=== PATIENT | female | born 1990 | race Caucasian/White ===

== ENCOUNTER 2022-12-30 12:13 | Emergency (ER) | payer MEDICAID, SELFPAY ==
[2022-12-30 12:18] VITALS: BP 137/83; PULSE 73; RESP 18; TEMP 36.6; O2SAT 98; BMI 43.3
--- NOTE | 2022-12-30 12:28 | CRLHL7_ITS ---
For Patients: As a result of the Century Cures Act, medical imaging exams and procedure reports are released immediately into your electronic medical record. You may view this report before your referring provider. If you have questions, please contact your health care provider. HISTORY: Right lower quadrant abdominal pain. TECHNIQUE: Intravenous contrast enhanced CT of the abdomen and pelvis. 139 mL Isovue-370 intravenous contrast administered. COMPARISON: 09/26/2016. FINDINGS: There is no focal liver lesion. No blurry ductal dilatation. Gallbladder does not appear overly distended. Mild splenomegaly with the spleen measuring 13.3 cm. Adrenal glands are normal. No focal pancreatic abnormality. Symmetric nephrograms. On the left, there is area of renal cortical parenchymal volume loss superiorly which is unchanged and compatible with remote insult. There is no hydronephrosis. Urinary bladder does not appear excessively distended. Small follicles within the ovaries. Trace free fluid within the cul de sac. - No small bowel obstruction. No appendicitis. No diverticulitis or colitis. No fluid collection or free air. - No abdominal aortic aneurysm. - Minor atelectasis within the right lower lobe. No consolidation or pleural effusion. - Degenerative changes of the spine. No acute fractures. IMPRESSION: 1. No appendicitis. 2. Small follicles within the ovaries. Trace fluid within the cul-de-sac. 3. Mild splenomegaly. Dictated by Torin Porras MD @ 12/30/2022 2:31:09 PM Please note that all CT scans at this facility use dose modulation, iterative reconstruction, and/or weight-based dosing when appropriate to reduce radiation dose to as low as reasonably achievable. Dictated by: Torin Porras MD @ 12/30/2022 14:31:29 (Electronically Signed)
--- NOTE | 2022-12-30 12:29 | ED_ITS ---
HPI - General Adult General Chief complaint: Abdominal Pain Stated complaint: Abdominal pain and vomiting Time Seen by Provider: 12/30/22 12:18 History of Present Illness HPI narrative: This 32-year-old female comes in reporting right lower quadrant abdominal pain that began last night. She states that it seemed to get better through the night but worsened this early this morning. She ranks it at 7/10 to 10/10 in severity. She has had some nausea with vomiting. She does not report any fever, dysuria, or altered bowel function. She states that the pain was worse with movement, in particular the car ride here was causing pain when going over bumps. Related Data Previous Rx's Medication Instructions Recorded ketorolac 10 mg tablet 10 mg PO TID 5 days #15 tabs 12/30/22 ondansetron HCl 4 mg tablet 4 mg PO Q6H #10 tabs 12/30/22 Allergies Allergy/AdvReac Type Severity Reaction Status Date / Time No Known Allergies Allergy Verified 12/30/22 11:24 Review of Systems Status of ROS: Reports: 10 or more systems reviewed and unremarkable except as noted in History and below Narrative: Constitutional: No fevers, no weight gain or loss. Eyes: No discharge. No vision changes. HENT: No congestion, no sore throat, no ear pain. Cardiovascular: No chest pain, no palpitations. Respiratory: No shortness of breath, no wheezes, no cough. Gastrointestinal: No diarrhea. Abdominal pain with nausea and vomiting. Genitourinary: No dysuria, no hematuria. Musculoskeletal: Normal range of motion. Skin: No rashes, no pruritis. Neurological: No dizziness, weakness, sensory change, speech change. Endo/Heme/Allergies: No bruising or bleeding. No polydipsia. Pysch: no suicidality, no anxiety, no insomnia. All other systems reviewed and are negative. [facility] Medical History (Updated 12/30/22 @ 15:02 by Ky Buitrago MD) Anemia due to acute blood loss History of chlamydia infection Nasal alar collapse Normal delivery at term Pancreatitis (06/2017) Pyelonephritis Trichomonal vaginitis during in second trimester (04/2017) Social History (Updated 05/01/22 @ 11:28 by Luba Aguirre) Narrative: History of tobacco use Marijuana use Smoking Status: Former smoker Do you use any of these nicotine containing products: None Second hand tobacco smoke exposure: No How often do you have a drink containing alcohol: 2-4 times a month AUDIT-C Alcohol total score: 2 Non-prescribed substance use: marijuana (any form) Exam Narrative: Exam Narrative: Constitutional: Well-developed, well-nourished, no acute distress. HEENT: Normocephalic, atraumatic. Neck: Normal range of motion. Nontender. Supple. Heart: Regular. No murmurs. Normal rate. Intact distal pulses. Lungs: Clear to auscultation. No chest discomfort. No wheezes, rhonchi, or rales. Abdomen: Decreased bowel sounds. Tenderness in the right lower quadrant over McBurney's point. Rebound tenderness is present. Genitalia: Deferred. Back: No midline tenderness. Normal range of motion. Extremities: Normal range of motion. No injury. Skin: Intact. No rash. Warm. No erythema or pallor. Neurologic: No altered sensation. No weakness. Alert and oriented. Psychiatric: No suicidality. No anxiety or depression. No insomnia. Nursing notes and vitals signs are reviewed. Const: Vital Signs, click to edit/add: Vital Signs - 24 hr 12/30/22 12:18 Temperature 97.8 F Pulse Rate [Right Pulse Oximeter] 73 Respiratory Rate 18 Blood Pressure [Ri ght Upper Arm] 137/83 Pulse Oximetry 98 Oxygen Delivery Me thod Room Air Course Vital Signs Vital signs: Initial Vital Signs Temperature 97.8 F 12/30/22 12:18 Temperature Source Temporal Artery Scan 12/30/22 12:18 Pulse Rate 73 12/30/22 12:18 Respiratory Rate 18 12/30/22 12:18 Blood Pressure 137/83 12/30/22 12:18 Blood Pressure Mean 101 12/30/22 12:18 Blood Pressure Position Sitting 12/30/22 12:18 Pulse Oximetry 98 12/30/22 12:18 Oxygen Delivery Method 12/30/22 12:18 Vital Signs Temperature 97.8 F 12/30/22 12:18 Pulse Rate 73 12/30/22 12:18 Respiratory Rate 18 12/30/22 12:18 Blood Pressure 137/83 12/30/22 12:18 Pulse Oximetry 98 12/30/22 12:18 Oxygen Delivery Method 12/30/22 12:18 Temperature 97.8 F 12/30/22 12:18 Pulse Rate 73 12/30/22 12:18 Respiratory Rate 18 12/30/22 12:18 Blood Pressure 137/83 12/30/22 12:18 Pulse Oximetry 98 12/30/22 12:18 Oxygen Delivery Method 12/30/22 12:18 Medical Decision Making MDM Narrative Medical decision making narrative: This patient comes in with abdominal pain as described above. An IV was established where she received a L of normal saline, Zofran 4 mg, and Dilaudid 0.5 mg. This brought great relief to her symptoms. She states that she feels back to normal. A CT scan of the abdomen and pelvis was obtained and returns with no significant findings to explain her pain. Lab results returned with the slightly elevated white count and hemoglobin at 8.5. Looking back in her record she did have low hemoglobin at 7.0 several years ago. It improved to around 12 after this. She states that she thinks that she did have a blood transfusion. She is not sure why she was anemic but did state that she had history of iron deficiency. She is okay to return home. I advised her to follow-up with her primary physician in regard to the anemia. She did received prescription for Toradol and Zofran. Lab Data Labs: Lab Results 12/30/22 12/30/22 12/30/22 Range/Units 12:35 12:35 12:35 WBC 13.44 H (4.50-11.00) K/uL RBC 4.56 (4.00-5.20) m/uL Hgb 8.5 L (12.0-16.0) gm/dL Hct 30.0 L (33.0-51.0) % MCV 66 L (80-100) fL MCH 19 L (26-34) pg MCHC 28 L (32-36) gm/dL RDW Coeff of Yuki 19.7 H (11.5-15.5) % Plt Count 376 (140-440) K/uL Neut % (Auto) 85.6 H (42.0-72.0) % Lymph % (Auto) 11.0 L (20-44) % [place] % (Auto) 2.6 (0.0-11.0) % Eos % (Auto) 0.1 (0.0-7.0) % Baso % (Auto) 0.4 (0.0-3.0) % Neut # (Auto) 11.50 H (1.7-7.0) K/uL Lymph # (Auto) 1.50 (0.90-2.90) K/uL [place] # (Auto) 0.30 (0.00-0.90) K/UL Eos # (Auto) 0.00 (0.00-0.50) K/uL Baso # (Auto) 0.10 (0.00-0.30) K/uL Diff Slide Review Acceptable Review (Acceptable) Sodium 141 (135-149) mmol/L Potassium 3.7 (3.6-5.1) mmol/L Chloride 108 (96-114) mmol/L Carbon Dioxide 23 (20-32) mmol/L BUN 11 (5-24) mg/dL Creatinine 0.7 (0.5-1.5) mg/dL Estimated Creat Clear 117.47 Estimated GFR 119 ml/min Glucose 132 H (60-115) mg/dL Calcium 9.1 (8.4-10.6) mg/dL HCG, Qual Negative (Negative) Imaging Data CT scan - abdomen: Radiologist's impression: 1. No appendicitis. 2. Small follicles within the ovaries. Trace fluid within the cul-de-sac. 3. Mild splenomegaly. Discharge Plan Discharge Clinical Impression: Anemia, Abdominal pain Patient Disposition: Home, Self-Care Condition: Improved Additional Instructions: Increase diet and activity as tolerated. Take medication as needed and directed. Follow up with MD or return if worsening. Prescriptions: New ondansetron HCl 4 mg tablet 4 mg PO Q6H Qty: 10 0RF ketorolac 10 mg tablet 10 mg PO TID 5 Days Qty: 15 0RF Follow Up/Referrals: Provider,Not a Local [Primary Care Provider] - Stand Alone Forms: [place] Info Instructions
[2022-12-30 12:48] LABS: Basophils Percent Auto 0.4 % (0.0-3.0); Eosinophils Percent Auto 0.1 % (0.0-7.0); Hemoglobin* 8.5 gm/dL (12.0-16.0); Immature Granulocytes Pct Auto 0.3 %; Mean Corpuscular HGB Conc 28 gm/dL (32-36); Mean Corpuscular Hemoglobin 19 pg (26-34); Mean Corpuscular Volume 66 fL (80-100); Monocytes Percent Auto 2.6 % (0.0-11.0); Neutrophils Percent Auto 85.6 % (42.0-72.0); Platelet Count* 376 K/uL (140-440); RDW Coefficient of Variation % 19.7 % (11.5-15.5); Red Blood Count 4.56 m/uL (4.00-5.20); White Blood Count* 13.44 K/uL (4.50-11.00)
[2022-12-30] MEDS: HYDROmorphone 0.5 mg/0.5 ml inj IVP (12:49)
[2022-12-30 12:50] LABS: Slide Review Reflex Yes
[2022-12-30] MEDS: ONDANSETRON 2 MG/ML inj 4 MG IVP (12:50)
[2022-12-30] MEDS: 0.9 % SODIUM CHLORIDE 1000 ml 1,000 ML IV (12:50)
[2022-12-30 12:54] LABS: Slide Review Acceptable Review (Acceptable)
[2022-12-30 13:00] VITALS: BP 133/79; PULSE 76; RESP 18; O2SAT 96
[2022-12-30 13:01] LABS: Chloride* 108 mmol/L (96-114); Sodium* 141 mmol/L (135-149)
[2022-12-30 13:02] LABS: Potassium* 3.7 mmol/L (3.6-5.1)
[2022-12-30 13:04] LABS: Carbon Dioxide* 23 mmol/L (20-32); Creatinine* 0.7 mg/dL (0.5-1.5); Est. Creatinine Clearance* 117.47; Estimated Glomerular Filt Rate 119 ml/min
[2022-12-30 13:05] LABS: Blood Urea Nitrogen* 11 mg/dL (5-24); Calcium* 9.1 mg/dL (8.4-10.6); Glucose* 132 mg/dL (60-115)
[2022-12-30 13:21] LABS: HCG Qualitative Serum* Negative (Negative)
[2022-12-30 14:00] VITALS: BP 121/80; PULSE 63; RESP 18; O2SAT 99
[2022-12-30 15:00] VITALS: BP 134/73; PULSE 65; RESP 18; O2SAT 100
== END 2022-12-30 15:18 | disposition home or self-care (01) ==
PROVIDERS: Emergency Provider Emergency Medicine Emergency Medical Services
DX: R10.31 Right lower quadrant pain (principal); D64.9 Anemia, unspecified
CPT/HCPCS: 36415; 74177; 80048; 84703; 85025; 96374; 96375; 99284; J1170; J2405; J7030; Q9967

== ENCOUNTER 2024-06-05 14:43 | Outpatient (CLI) | payer MEDICAID, SELFPAY ==
--- NOTE | 2024-06-05 15:00 | CRLHL7_ITS ---
For Patients: As a result of the Century Cures Act, medical imaging exams and procedure reports are released immediately into your electronic medical record. You may view this report before your referring provider. If you have questions, please contact your health care provider. INDICATION: excessive and frequent menstruation x 6 months COMPARISON: none TECHNIQUE: 2D carrillo scale and color Doppler images were acquired of the pelvis using a transabdominal and transvaginal approach. FINDINGS: Sonographic images demonstrate a normal size and smooth outer contour of the uterus. Uterus measures 10.7 cm in length by 5.6 cm in AP diameter by 7.1 cm in transverse dimension. Incidental cervical nabothian cysts are present. The endometrial lining appears thickened and heterogeneous and measures 16 mm in composite thickness. The right ovary measures 5.8 x 2.4 x 2.7 cm in size and the left ovary measures 4.3 x 2.0 x 1.8 cm. The ovaries demonstrate normal arterial and venous blood flow on color Doppler analysis. There are no suspicious fluid collections within the cul-de-sac. IMPRESSION: Thickened and heterogeneous endometrium measuring 1.6 cm. Dictated by Manfred Russo MD @ 06/06/2024 6:50:36 AM (Electronically Signed)
== END 2024-06-05 14:44 | disposition home or self-care (01) ==
LOC: US 14:45
PROVIDERS: Visit Provider Registered Nurse
DX: N92.0 Excessive and frequent menstruation with regular cycle (principal); R93.89 Abnormal findings on diagnostic imaging of other specified body structures
CPT/HCPCS: 76830; 76856

== ENCOUNTER 2024-07-02 12:35 | Outpatient (CLI) | payer MEDICAID, SELFPAY | END 2024-07-02 12:36 | disposition home or self-care (01) | LOC: FRMREF 12:36 | PROVIDERS: Visit Provider Obstetrics & Gynecology | DX: N92.0 Excessive and frequent menstruation with regular cycle (principal); Z13.220 Encounter for screening for lipoid disorders | CPT/HCPCS: 80061; 84443 ==

== ENCOUNTER 2024-08-06 06:37 | Day surgery (SDC) | payer MEDICAID, SELFPAY ==
--- OUTSIDE RECORDS SUMMARY | 2024-08-06 06:39 | XMS_ITS | Clinical Summary ---
Author Organization [facility] Address [place], [place] [address] Care Team Providers Care Wet Sander Name Role Phone Pcp, No Primary Care Provider Unavailabl e Allergies No known active allergies Medications Medication Sig Dispensed Refills Start Date End Date Status ondansetron (ZOFRAN ODT) 4 mg disintegrating tabletIndications:Nause a and vomiting, unspecified vomiting type Place 1 Tablet (4 mg) on the tongue every 8 hours if needed for Nausea/Vomiting . 12 Tablet 06/29/2024 Active oxyCODONE (ROXICODONE) 5 mg immediate release tabletIndications:Abdom inal pain, unspecified abdominal location,Nausea and vomiting, unspecified vomiting type Take 1 Tablet (5 mg) by mouth every 6 hours if needed for Pain. 10 Tablet 06/29/2024 Active rx oxyCODONE 5 mg (ROXICODONE) tablet (ED DC MED)Indications:Abdomin al pain, unspecified abdominal location Take 1 Tablet (5 mg) by mouth every 4 hours if needed for Pain. 4 Tablet 06/29/2024 Active Encounters Date Type Department Care Team Description 06/29/2024 5:10 PM CDT - 06/30/2024 12:09 AM CDT Emergency [facility] [address] [place] [address] Clair Aguiar NP Abdominal pain, unspecified abdominal location (Primary Dx); Nausea and vomiting, unspecified vomiting type Discharge Disposition: Home Self Care 06/29/2024 Travel from Last 3 Months Social History Tobacco Use Types Packs/Day Years Used Date Smoking Tobacco: Never Assessed Sex and Gender Information Value Date Recorded Sex Assigned at Not on file Gender Identity Not on file Sexual Orientation Not on file Last Filed Vital Signs Vital Sign Reading Time Taken Comments Blood Pressure 139/73 06/29/2024 5:15 PM CDT Pulse 70 06/29/2024 5:20 PM CDT Temperature 36.6 ??C (97.9 ??F) 06/29/2024 5:15 PM CD T Respiratory Rate 20 06/29/2024 5:15 PM CDT Oxygen Saturation 94% 06/29/2024 5:20 PM CDT Inhaled Oxygen Concentration - - Weight - - Height 175.3 cm (5' 9) 06/29/2024 5:14 PM CDT Body Mass Index - - Plan of Treatment Not on file Procedures Procedure Name Priority Date/Time Associated Diagnosis Comments US PELVIS COMPLETE TA AND TV WITH DUPLEX Routine 06/29/2024 10:[address] ABDOMEN PELVIS STONE PROTOCOL WO STAT 06/29/2024 7:22 PM CDT URINALYSIS MICROSCOPIC STAT 06/29/2024 6:18 PM CDT URINE STAT 06/29/2024 6:18 PM CDT UA W/ SEDIMENT EXAM REFLEXED PER CRITERIA STAT 06/29/2024 6:18 PM CDT RED CELL MORPHOLOGY STAT 06/29/2024 6 :10 PM CDT PLATELET ESTIMATE STAT 06/29/2024 6:1 0 PM CDT MANUAL DIFFERENTIAL STAT 06/29/2024 6 :10 PM CDT CBC WITH AUTO DIFFERENTIAL STAT 06/29/2024 6:10 PM CDT HEPATIC FUNCTION PANEL STAT 06/29/2024 6:10 PM CDT C-REACTIVE PROTEIN STAT 06/29/2024 6: 10 PM CDT LIPASE STAT 06/29/2024 6:10 PM CDT BASIC METABOLIC PANEL STAT 06/29/2024 6:10 PM CDT CBC WITH AUTO DIFFERENTIAL STAT 06/29/2024 6:10 PM CDT from Last 3 Months Results * US PELVIS COMPLETE TA AND TV WITH DUPLEX (06/29/2024 10:29 PM CDT) Anatomical Region Laterality Modality Pelvis Ultrasound 06/30/2024 12:0 7 AM CDT Impressions 06/30/2024 12:07 AM CDT 1. No sonographically apparent acute findings. Specifically, no evidence of torsion. 2. Incidentally noted cystic structure in the left ovary measuring up to 1.4 cm with internal debris and peripheral vascularity. The lesion is indeterminate, but differential includes endometrioma and corpus luteum. Follow-up ultrasound in 14 days could be considered. Dictated by Manfred Lozano MD @ 06/30/2024 12:07:36 AM (Electronically Signed) Narrative 06/30/2024 12:07 AM CDT For Patients: ??As a result of the Century Cures Act, medical imaging exams and procedure reports are released immediately into your electronic medical record. ??You may view this report before your referring provider. ??If you have questions, please contact your health care provider. INDICATION: RLQ pain/tenderness. TECHNIQUE: Ultrasound pelvis transabdominal and transvaginal for better assessment or to better visualize the endometrium. COMPARISON: Same day CT abdomen and pelvis. FINDINGS: Uterus: 9.7 x 5.1 x 6.4 cm. ??Normal echotexture of the myometrium. ??No masses. ?? Endometrium: Transvaginal imaging was performed to better evaluate the endometrium. ??Endometrial thickness measures 13 mm, which is at the upper limits of normal for a premenopausal patient. No sign of endometrial mass or fluid. ?? Right ovary 3.2 x 2.4 x 2.5 cm. ??No ovarian or adnexal masses. Left ovary 4.3 x 3.0 x 2.4 cm. ??Within the left ovary, there is a cystic structure with internal debris and peripheral vascularity measuring 1.4 x 1.3 x 1.3 cm. No internal vascularity is identified within the lesion. Cul-de-sac: No significant free fluid. ? Procedure Note Manfred Lozano MD - 06/30/2024 For Patients: As a result of the Cures Act, medical imagingexams and procedure reports are released immediately into your electronicmedical record. You may view this report before your referring provider.If you have questions, please contact your health care provider. INDICATION: RLQ pain/tenderness. TECHNIQUE: Ultrasound pelvis transabdominal and transvaginal for better assessment orto better visualize the endometrium. COMPARISON: Same day CT abdomen and pelvis. FINDINGS: Uterus: 9.7 x 5.1 x 6.4 cm. Normal echotexture of the myometrium. Nomasses. Endometrium: Transvaginal imaging was performed to better evaluate theendometrium. Endometrial thickness measures 13 mm, which is at the upperlimits of normal for a premenopausal patient. No sign of endometrial massor fluid. Right ovary 3.2 x 2.4 x 2.5 cm. No ovarian or adnexal masses. Left ovary 4.3 x 3.0 x 2.4 cm. Within the left ovary, there is a cysticstructure with internal debris and peripheral vascularity measuring 1.4 x1.3 x 1.3 cm. No internal vascularity is identified within the lesion. Cul-de-sac: No significant free fluid. IMPRESSION: 1. No sonographically apparent acute findings. Specifically, no evidenceof torsion. 2. Incidentally noted cystic structure in the left ovary measuring up to1.4 cm with internal debris and peripheral vascularity. The lesion isindeterminate, but differential includes endometrioma and corpus luteum.Follow-up ultrasound in 14 days could be considered. Dictated by Manfred Lozano MD @ 06/30/2024 12:07:36 AM (Electronically Signed) Clair Aguiar DIGESTER OPERATOR US * CT ABDOMEN PELVIS STONE PROTOCOL WO (06/29/2024 7:22 PM CDT) Anatomical Region Laterality Modality Abdomen, Pelvis, AORTA, LIVER, SPLEEN Computed Tomography 06/29/2024 8:13 PM CDT Narrative 06/29/2024 8:13 PM CDT For Patients: ??As a result of the Cures Act, medical imaging exams and procedure reports are released immediately into your electronic medical record. ??You may view this report before your referring provider. ??If you have questions, please contact your health care provider. Indication: Flank pain, kidney stone suspected Technique: CT abdomen/pelvis without IV contrast Comparison: None Findings: Lower thorax: Unremarkable Abdomen/pelvis: The liver, gallbladder and biliary system, spleen, pancreas, and bilateral adrenal glands are unremarkable in appearance. The kidneys are normal in size. No appreciable renal masses or lesions. No renal calculi or hydroureteronephrosis. The bladder is decompressed and not well evaluated on this exam. The uterus and bilateral ovaries are within normal limits in appearance. No evidence of bowel obstruction or inflammation. The appendix is unremarkable. No free fluid or free air. No pathologically enlarged lymph nodes throughout the abdomen or pelvis. No abdominal aortic aneurysm. Soft tissue/musculoskeletal: Tiny fat containing umbilical hernia. The osseous structures are unremarkable. Impression: No CT evidence of an acute process involving the abdomen or pelvis; specifically, no obstructing stones or hydroureteronephrosis. Please note that all CT scans at this facility use dose modulation, iterative reconstruction, and/or weight-based dosing when appropriate to reduce radiation dose to as low as reasonably achievable. Dictated by Sudeep Pitts MD @ 06/29/2024 8:13:41 PM (Electronically Signed) Procedure Note Sudeep Pitts MD - 06/29/2024 For Patients: As a result of the Cures Act, medical imagingexams and procedure reports are released immediately into your electronicmedical record. You may view this report before your referring provider.If you have questions, please contact your health care provider. Indication: Flank pain, kidney stone suspected Technique: CT abdomen/pelvis without IV contrast Comparison: None Findings: Lower thorax: Unremarkable Abdomen/pelvis: The liver, gallbladder and biliary system, spleen, pancreas, and bilateraladrenal glands are unremarkable in appearance. The kidneys are normal in size. No appreciable renal masses or lesions. Norenal calculi or hydroureteronephrosis. The bladder is decompressed andnot well evaluated on this exam. The uterus and bilateral ovaries arewithin normal limits in appearance. No evidence of bowel obstruction or inflammation. The appendix isunremarkable. No free fluid or free air. No pathologically enlarged lymph nodesthroughout the abdomen or pelvis. No abdominal aortic aneurysm. Soft tissue/musculoskeletal: Tiny fat containing umbilical hernia. The osseous structures areunremarkable. Impression: No CT evidence of an acute process involving the abdomen or pelvis;specifically, no obstructing stones or hydroureteronephrosis. Please note that all CT scans at this facility use dose modulation,iterative reconstruction, and/or weight-based dosing when appropriate toreduce radiation dose to as low as reasonably achievable. Dictated by Sudeep Pitts MD @ 06/29/2024 8:13:41 PM (Electronically Signed) Clair Aguiar DIGESTER OPERATOR CT * (ABNORMAL) URINALYSIS MICROSCOPIC (06/29/2024 6:18 PM CDT) RBC 6-10(A) 0-2, None Seen /HPF 06/29/2024 6:38 PM CDT [facility] WBC 0-2 0-2, 3-5, None Seen /HPF 06/29/2024 6:38 PM CDT [facility] BACTERIA Few None Seen, Rare, Few Bacteria/ HPF 06/29/2024 6:38 PM CDT [facility] EPITHELIAL CELLS Few None Seen, Few Epi/HPF 06/29/2024 6:38 PM CDT [facility] AMORPHOUS Present(A) (none) 06/29/2024 6:38 PM CDT [facility] Urine URINE SPECIMEN / Unknown Non-Blood / Unknown 06/29/2024 6:18 PM CDT 06/29/2024 6:23 PM CDT Trenton Wilkinson MD URINE [facility] [address] [place] [address] * (ABNORMAL) UA W/ SEDIMENT EXAM REFLEXED PER CRITERIA (06/29/2024 6:18 PM CDT) COLOR Yellow Yellow Color 06/29/2024 6:30 PM CDT [facility] CLARITY Slightly Cloudy(A) Clear Clarity 06/29/2024 6:30 PM T [facility] SPECIFIC GRAVITY,URINE 1.020 1.010, 1.015, 1.020, 1.025 06/29/2024 6:30 PM T [facility] PH,URINE 8.5 6.0, 7.0, 8.0, 5.5, 6.5, 7.5, 8.5 06/29/2024 6:30 PM [facility] UROBILINOGEN, QUALITATIVE Normal Normal EU/dl 06/29/2024 6:30 PM [facility] PROTEIN, URINE Trace(A) Negative mg/dL 06/29/2024 6:30 PM [facility] GLUCOSE, URINE Negative Negative mg/dL 06/29/2024 6:30 PM [facility] KETONES,URINE >=80(A) Negative mg/dL 06/29/2024 6:30 PM [facility] BILIRUBIN,URI NE Negative Negative 06/29/2024 6:30 PM [facility] OCCULT BLOOD,URINE Small(A) Negative 06/29/2024 6:30 PM [facility] NITRITE Negative Negative 06/29/2024 6:30 PM [facility] LEUKOCYTE ESTERASE Negative Negative 06/29/2024 6:30 PM [facility] Urine URINE SPECIMEN / Unknown Non-Blood / Unknown 06/29/2024 6:18 PM CDT 06/29/2024 6:23 PM CDT Trenton Wilkinson MD URINE [facility] [address] [place] [address] * URINE (06/29/2024 6:18 PM CDT) ,URIN E Negative Negative 06/29/2024 6:28 PM T [facility] Urine URINE SPECIMEN / Unknown Non-Blood / Unknown 06/29/2024 6:18 PM CDT 06/29/2024 6:23 PM CDT Trenton Wilkinson MD URINE [facility] [address] [facility] [place] [address] * (ABNORMAL) CBC WITH AUTO DIFFERENTIAL (06/29/2024 6:10 PM CDT) WHITE BLOOD COUNT 17.0(H) 4.5 - 11.0 thou/cu mm 06/29/2024 6:48 PM CDT [facility] RED BLOOD COUNT 4.92 4.00 - 5.20 mil/cu mm 06/29/2024 6:48 PM CDT [facility] HEMOGLOBIN 11.3(L) 12.0 - 16.0 g/dL 06/29/2024 6:48 PM CDT [facility] HEMATOCRIT 35.2 33.0 - 51.0 % 06/29/2024 6:48 PM CDT [facility] MCV 72(L) 80 - 100 fL 06/29/2024 6:48 PM CDT [facility] MCH 23.0(L) 26.0 - 34.0 pg 06/29/2024 6:48 PM CDT [facility] MCHC 32.1 32.0 - 36.0 g/dL 06/29/2024 6:48 PM CDT [facility] RDW 16.4(H) 11.5 - 15.5 % 06/29/2024 6:48 PM CDT [facility] PLATELET COUNT 413 140 - 440 thou/cu mm 06/29/2024 6:48 PM CDT [facility] MPV 9.8 6.5 - 11.0 fL 06/29/2024 6:48 PM T [facility] Blood BLOOD SPECIMEN / Unknown Venipuncture / Unknown 06/29/2024 6:10 PM CDT 06/29/2024 6:18 PM CDT Clair Aguiar NP HEMATOLOGY [facility] [address] [place] [address] * (ABNORMAL) RED CELL MORPHOLOGY (06/29/2024 6:10 PM CDT) Pathologist [facility] ELLIPTOCYTES Few 06/29/2024 6:47 PM CDT [facility] RBC COMMENT Present(A) RBC morphology appears normal, RBC morphology within normal limits for newborns. 06/29/2024 6:47 PM CDT [facility] LARGE PLATELETS Present 6:47 PM CDT [facility] Blood BLOOD SPECIMEN / Unknown Venipuncture / Unknown 06/29/2024 6:10 PM CDT 06/29/2024 6:18 PM CDT Clair Aguiar NP HEMATOLOGY Performing Organization Address [facility] Co de Phone Number [facility] [address] [place] [address] * PLATELET ESTIMATE (06/29/2024 6:10 PM CDT) [facility] PLATELET ESTIMATE Adequate Adequate, No estimate 06/29/2024 6:47 PM CDT [facility] Blood BLOOD SPECIMEN / Unknown Venipuncture / Unknown 06/29/2024 6:10 PM CDT 06/29/2024 6:18 PM CDT Clair Aguiar NP HEMATOLOGY Performing Organization Address [facility]/ZIP Co de Phone Number [facility] [address] [place] [address] * (ABNORMAL) MANUAL DIFFERENTIAL (06/29/2024 6:10 PM CDT) Pathologist [facility] % NEUTROPHILS 85.0 % 06/29/2024 6:47 PM CDT [facility] % LYMPHOCYTES 11.0 % 06/29/2024 6:47 PM CDT [facility] % MONOCYTES 4.0 % 06/29/2024 6:[facility] % EOSINOPHILS 0.0 % 06/29/2024 6:47 PM CDT [facility] % BASOPHILS 0.0 % 06/29/2024 6:47 PM CDT [facility] NEUTROPHILS ABSOLUTE 14.5(H) 1.7 - 7.0 thou/cu mm 06/29/2024 6:47 PM CDT [facility] LYMPHOCYTES ABSOLUTE 1.9 0.9 - 2.9 thou/cu mm 06/29/2024 6:47 PM CDT [facility] MONOCYTES ABSOLUTE 0.7 <0.9 thou/cu mm 06/29/2024 6:47 PM CDT [facility] EOSINOPHILS ABSOLUTE 0.0 <0.5 thou/cu mm 06/29/2024 6:47 PM CDT [facility] BASOPHILS ABSOLUTE 0.0 <0.3 thou/cu mm 06/29/2024 6:47 PM CDT [facility] Blood BLOOD SPECIMEN / Unknown Venipuncture / Unknown 06/29/2024 6:10 PM CDT 06/29/2024 6:18 PM CDT Clair Aguiar NP HEMATOLOGY [facility] [address] [place] [address] * (ABNORMAL) C-REACTIVE PROTEIN (06/29/2024 6:10 PM CDT) C-REACTIVE PROTEIN 1.3(H) <0.5 mg/dL 06/29/2024 6:45 PM CDT [facility] Blood BLOOD SPECIMEN / Unknown Add On / Unknown 06/29/2024 6:10 PM CDT 06/29/2024 6:19 PM CDT Clair Aguiar NP CHEMISTRY [facility] [address] [place] [address] * LIPASE (06/29/2024 6:10 PM CDT) LIPASE 37.4 13.0 - 60.0 IU/L 06/29/2024 6:45 PM CDT [facility] Blood BLOOD SPECIMEN / Unknown Add On / Unknown 06/29/2024 6:10 PM CDT 06/29/2024 6:19 PM CDT Clair Aguiar DIGESTER OPERATOR CHEMISTRY [facility] [address] [place] [address] * (ABNORMAL) HEPATIC FUNCTION PANEL (06/29/2024 6:10 PM CDT) ALBUMIN 4.5 4.0 - 4.9 g/dL 06/29/2024 6:45 PM CDT [facility] PROTEIN,TOTAL 8.0 6.0 - 8.0 g/dL 06/29/2024 6:45 PM CDT [facility] BILIRUBIN,TOTAL 0.5 0.0 - 1.2 mg/dL 06/29/2024 6:45 PM CDT [facility] BILIRUBIN,DIRECT <0.2 0.0 - 0.3 mg/dL 06/29/2024 6:45 PM T [facility] BILIRUBIN,INDIRE CT 06/29/2024 6:45 PM T [facility] Comment:Unable to calculate, Direct Bili <0.2 ALK PHOSPHATASE 122(H) 35 - 104 IU/L 06/29/2024 6:45 PM CDT [facility] ALT (SGPT) 16 10 - 35 IU/L 06/29/2024 6:45 PM T [facility] AST (SGOT) 23 10 - 35 IU/L 06/29/2024 6:45 PM CDT [facility] Blood BLOOD SPECIMEN / Unknown Add On / Unknown 06/29/2024 6:10 PM CDT 06/29/2024 6:19 PM CDT Clair Aguiar DIGESTER OPERATOR CHEMISTRY [facility] [address] [place] [address] * (ABNORMAL) BASIC METABOLIC PANEL (06/29/2024 6:10 PM CDT) SODIUM 142 136 - 145 mmol/L 06/29/2024 6:45 PM [facility] POTASSIUM 3.8 3.5 - 5.1 mmol/L 06/29/2024 6:45 PM [facility] CHLORIDE 105 98 - 107 mmol/L 06/29/2024 6:45 PM [facility] CO2,TOTAL 20(L) 22 - 29 mmol/L 06/29/2024 6:45 PM [facility] ANION GAP 17 5 - 18 06/29/2024 6:45 PM [facility] GLUCOSE 137(H) 70 - 99 mg/dL 06/29/2024 6:45 PM [facility] CALCIUM 9.5 8.6 - 10.0 mg/dL 06/29/2024 6:45 PM [facility] BUN 12 6 - 20 mg/dL 06/29/2024 6:45 PM [facility] CREATININE 0.87 0.50 - 0.90 mg/dL 06/29/2024 6:45 PM [facility] BUN/CREAT RATIO 14 10 - 20 4 6:45 PM [facility] eGFR >90 >90 mL/min/1.7 3m2 06/29/2024 6:45 PM [facility] Comment:As of 2022, eG FR is calculated by the CKD-EPI creatinine equation without race adjustment. ??eGFR can be influenced by muscle mass, exercise, and diet. ??The reported eGFR is an estimation only and is only applicable if the renal function is stable. Blood BLOOD SPECIMEN / Unknown Add On / Unknown 06/29/2024 6:10 PM CDT 06/29/2024 6:19 PM CDT Clair Aguiar NP CHEMISTRY [facility] [address] [place], [place] [id number] from Last 3 Months Care Teams Wet Sander Relationship Specialty Start Date End Date Pcp, No . PCP - General 04/29/10
[2024-08-06 07:10] VITALS: BMI 35.7
--- NOTE | 2024-08-06 07:12 | W.PM.H&PU ---
History & Physical Update History & Physical Update H&P Reviewed and patient assessed: No changes noted
[2024-08-06 07:21] LABS: Ur HCG Qualitative* Negative (Negative)
[2024-08-06 07:32] VITALS: BP 124/66; PULSE 61; RESP 16; TEMP 36.6; O2SAT 97
[2024-08-06] MEDS: LACTATED RINGERS 1000 ML 1,000 ML 100 ML IV (07:34)
[2024-08-06] MEDS: SODIUM CHLORIDE 0.9 % (FLUSH) 10 ML SYRINGE IVF (07:35)
--- NOTE | 2024-08-06 07:41 | P.PCN_ITS ---
Procedure Note Time Seen by Provider: 08:48 Date Seen: 08/06/24 Date of procedure: 08/06/24 Will [facility] bill your pro fee for this procedure?: Yes Procedure: Preoperative diagnosis: 33 yo with menorrhagia. Postoperative diagnosis: Same. Procedure: Hysteroscopy, dilation and curettage, endometrial ablation. Anesthesia: Mac and paracervical block. Surgeon: Almita Villavicencio Assist: None Estimated blood loss: 5 mL IV Fluid: 600 mL Urine output: 25 mL Specimen: Endometrial curettings, sent to path. Findings: On exam under anesthesia: The cervix and vagina appear normal. The uterus was mid position, approximately 8 week size, mobile and without masses or nodularity palpable. Adnexa were without mass or fullness palpable bilaterally. On hysteroscopy: Multiple polypoid masses otherwise normal. No other abnormalities noted. The uterus sounded to 9 cm. Cervical length 4.5 cm. Cavity length: 4.5. Procedure: Sushila was taken to the operating room where conscious sedation was found to be adequate. She was placed in a dorsal lithotomy position and an exam under anesthesia was performed with the findings stated above. She was then prepped and draped in a normal sterile manner. An a bivalve is sterile speculum was placed in the vaginal canal. A paracervical block was placed using 0.5% Marcaine: 10 mL were injected at the 4 and 8 o'clock positions on the cervix. A long Allis clamp was placed on the anterior lip of the cervix. The cervix was then dilated to Hegar 6. Uterus sounded to 9 cm. The cervix measured 4.5 cm. There for the cavity length was 4.5 cm. The Truclear hysteroscope was adva nced into the uterus. A diagnostic hysteroscopy performed with normal saline as the insufflation medium. Findings are stated above. The Truclear incisor was then advanced into the camera. And the curettage performed with this incisor. The curettage took approximately 3 min. Total amount of insufflation saline used 1980 mL. Deficit 140 mL. The cavity appeared normal once the curettage was performed completed. The hysteroscope was removed. The cervix was then dilated to Hegar 8. The Melissa device was advanced into the uterus. The cavity check was completed and the ablation took place over 2 min. Patient received 30 mg of Toradol IV. The Melissa was removed, the hysteroscope readvanced to document ablation of the entire cavity. The hysteroscope was then removed. The Allis clamp removed from the anterior lip of the cervix. Nothing was needed to obtain hemostasis. The patient tolerated this procedure well. Sponge, lap and instrument counts were correct x2 at the end of the procedure and the patient was taken to the recovery area in stable condition.
[2024-08-06] MEDS: KETOROLAC 30 MG/ML inj IVP (08:29)
[2024-08-06] MEDS: BUPIVACAINE 0.5% 30 ML INJECTION (08:39)
--- NOTE | 2024-08-06 08:51 | W.ANESCHARGE ---
Anesthesia Charges Start Date/Time Anesthesia Start Date: 08/06/24 Anesthesia Start Time: 08:11 Stop Date/Time Anesthesia Stop Date: 08/06/24 Anesthesia Stop Time: 08:56
[2024-08-06 08:52] VITALS: BP 110/66; PULSE 61; RESP 16; TEMP 36.3; O2SAT 94
--- NOTE | 2024-08-06 08:57 | W.ANESCHARGE ---
Anesthesia Charges Start Date/Time Anesthesia Start Date: 08/06/24 Anesthesia Start Time: 08:11 Stop Date/Time Anesthesia Stop Date: 08/06/24 Anesthesia Stop Time: 08:56
[2024-08-06 09:15] VITALS: BP 127/86; PULSE 63; RESP 16; O2SAT 97
[2024-08-06 09:30] VITALS: BP 124/93; PULSE 46; RESP 16; O2SAT 100
== END 2024-08-06 09:50 | disposition home or self-care (01) ==
LOC: OR 06:37
PROVIDERS: Visit Provider Obstetrics & Gynecology
PROC: 0UDB8ZZ Extraction of Endometrium, Via Natural or Artificial Opening Endoscopic (ICD-10-PCS; CPT 58558; principal; 2024-08-06 08:00)
DX: N84.0 Polyp of corpus uteri (principal); N92.0 Excessive and frequent menstruation with regular cycle
CPT/HCPCS: 58563; 00952; 81025; 88305; C1782; J0665; J1100; J1885; J2405; J2704; J3010; J7120

== ENCOUNTER 2025-01-04 10:30 | Emergency (ER) | payer MEDICAID, SELFPAY ==
--- OUTSIDE RECORDS SUMMARY | 2025-01-04 10:32 | XMS_ITS | Clinical Summary ---
Author Organization [facility] Address [place], [place] [address] Care Team Providers Care Porcelain Enamel Sprayer Name Role Phone Pcp, No Primary Care Provider Unavailabl e Allergies No known active allergies Medications ondansetron (ZOFRAN ODT) 4 mg disintegrating tabletIndications:N ausea and vomiting, unspecified vomiting type Place 1 Tablet (4 mg) on the tongue every 8 hours if needed for Nausea/Vomi ting. 12 Tablet 4 Active oxyCODONE (ROXICODONE) 5 mg immediate release tabletIndications:A bdominal pain, unspecified abdominal location,Nausea and vomiting, unspecified vomiting type Take 1 Tablet (5 mg) by mouth every 6 hours if needed for Pain. 10 Tablet 4 Active rx oxyCODONE 5 mg (ROXICODONE) tablet (ED DC MED)Indications:Abd ominal pain, unspecified abdominal location Take 1 Tablet (5 mg) by mouth every 4 hours if needed for Pain. 4 Tablet 4 Active Social History Tobacco Use Types Packs/Day Years Used Date Smoking Tobacco: Never Assessed Interpersonal Safety Answer Date Record ed Are you being hit, kicked, p ushed or yelled at (see row info)? 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 Gender Identity Not on file Sexual Orientation Not on file Last Filed Vital Signs Vital Sign Reading Time Taken Comments Blood Pressure 139/73 06/29/2024 5:15 PM CDT Pulse 70 06/29/2024 5:20 PM CDT Temperature 36.6 C (97.9 F) 06/29/2024 5:15 PM CDT Respiratory Rate 20 06/29/2024 5:15 PM CDT Oxygen Saturation 94% 06/29/2024 5:20 PM CDT Inhaled Oxygen Concentration - - Weight - - Height 175.3 cm (5' 9) 06/29/2024 5:14 PM CDT Body Mass Index - - Plan of Treatment Not on file Insurance [facility] [place] [id number] Care Teams Porcelain Enamel Sprayer Relationship Specialty Start Date End Date Pcp, No . PCP - General 04/29/10
[2025-01-04 10:33] VITALS: BP 119/80; PULSE 57; RESP 18; TEMP 36.4; O2SAT 99; BMI 37.2
--- NOTE | 2025-01-04 11:10 | ED.GENADULT ---
HPI - General Adult General Date Seen: 01/04/25 Chief complaint: Nausea/Vomiting Stated complaint: vomiting Time Seen by Provider: 01/04/25 10:40 History of Present Illness HPI narrative: A 34-year-old female presents today for vomiting and abdominal pain x1 day. She has had a 15-20 episodes of vomiting within the last 24 hours. Abdominal pain is located to right lower quadrant. States it is sharp and constant. Pain intermittently radiates to right flank. Says she develops similar symptoms when menstruating. LMP 3 weeks ago. Denies fever, respiratory symptoms, urinary symptoms or diarrhea. Denies hematemesis. Patient had hysteroscopy and endometrial ablation in July of 2024. Related Data Home Medications ?Medication ?Instructions ?Recorded ?Confirmed multivitamin (Daily Multi-Vitamin 1 tab PO QAM 05/01/24 01/04/25 tablet) hydroxyzine HCl 10 mg tablet 10 mg PO QHS 12/24/24 01/04/25 sertraline 25 mg tablet 50 mg PO QDAY 12/24/24 01/04/25 Previous Rx's ?Medication ?Instructions ?Recorded norethindrone acetate 5 mg tablet 5 mg PO QDAY #60 tabs 12/24/24 Allergies Allergy/AdvReac Type Severity Reaction Status Date / Time No Known Allergies Allergy Verified 01/04/25 10:39 [facility] Medical History Dysmenorrhea ?N94.6 - Dysmenorrhea, unspecified (ICD-10) Menorrhagia ?N92.0 - Excessive and frequent menstruation with regular cycle (ICD-10) Trichomonal vaginitis during in second trimester (04/2017) ?O23.592 - Infection of other part of genital tract in , second trimester (ICD-10) ?A59.01 - Trichomonal vulvovaginitis (ICD-10) Pyelonephritis (09/2016) ?N12 - Tubulo-interstitial nephritis, not specified as acute or chronic (ICD-10) Pancreatitis (06/2017) ?K85.90 - Acute pancreatitis without necrosis or infection, unspecified (ICD-10) Normal delivery at term (10/21/17) ?O80 - Encounter for full-term uncomplicated delivery (ICD-10) History of chlamydia infection (09/2016) ?Z86.19 - Personal history of other infectious and parasitic diseases (ICD-10) Anemia due to acute blood loss ?D62 - Acute posthemorrhagic anemia (ICD-10) Surgical History [facility] teeth extracted ?K08.409 - Partial loss of teeth, unspecified cause, unspecified class (ICD-10) Status post primary low transverse section (01/19/19) ?Z98.891 - History of uterine scar from previous surgery (ICD-10) Status post tubal ligation (2018) ?Z98.51 - Tubal ligation status (ICD-10) Family History Mother Ovarian cancer Uterine cancer FH: mental illness Brain cancer Grandmother Ovarian cancer Uterine cancer FH: mental illness Father Alcohol dependence Social History Narrative: The patient is single. 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 She has a high school education. She denies tobacco use and illicit drug use. She denies alcohol use. The patient feels safe in her home. The patient exercises 3 times per week by biking. Smoking Status: Former smoker Do you use any of these nicotine containing products: None Second hand tobacco smoke exposure: No How often do you have a drink containing alcohol: monthly or less How many standard drinks containing alcohol do you have on a typical day: 1 or 2 How often do you have six or more drinks on one occasion: Never AUDIT-C Alcohol total score: 1 Non-prescribed substance use: marijuana (any form) Non-prescribed substance use details: gummies Caffeine: Yes Are you using contraception or practicing any form of control: No (tubal) Exam Narrative: Exam Narrative: Vital signs reviewed In general, alert, nontoxic Head: Normocephalic, atraumatic. Eyes: Sclera clear. Pupils equal and reactive. ENT: Mucous membranes moist. Neck: Supple without adenopathy. Heart: Regular rate and rhythm without murmur. Lungs: Clear. No increased work of breathing, crackles or wheezes. Abdomen: Soft, nontender to palpation. Specifically no right lower quadrant tenderness or pelvic tenderness. Extremities: Well perfused, pulses intact. No significant edema. Neurologic: Alert, conversant. Speech fluent, face symmetric. Moves all extremities equally. Skin: Warm, dry well perfused. Affect: Normal. Const: Vital Signs, click to edit/add: Vital Signs - 24 hr 01/04/25 10:33 Temperature 97.5 F L Pulse Rate [Pulse Oximeter] 57 L Respiratory Rate 18 Blood Pressure [Ri ght Upper Arm] 119/80 Pulse Oximetry 99 Oxygen Delivery Me thod Room Air Course Course ED Course: Patient an IV placed, given half L of normal saline as well as Zofran. Labs reviewed. These are reassuring with a normal white blood cell count, CRP, electrolytes. Abdominal exam remains entirely benign. In talking with her, she feels that these symptoms are typical for her, following her premenstrual pattern. It is possible there is a component of a viral gastroenteritis on top of this with more significant vomiting, but in the absence of significant abdominal pain or tenderness, with normal labs, I do not think additional imaging is indicated right now. She is comfortable with that. She feels significantly better and is comfortable with discharge. Will prescribe some Zofran that she can use at home. Discussed reasons to return such as more significant abdominal pain, fevers, uncontrolled vomiting despite treatment etcetera. Otherwise, outpatient follow-up as needed for persistent symptoms. Vital Signs Vital signs: Initial Vital Signs Temperature 97.5 F L 01/04/25 10:33 Temperature Source Temporal Artery Scan 01/04/25 10:33 Pulse Rate 57 L 01/04/25 10:33 Respiratory Rate 18 01/04/25 10:33 Blood Pressure 119/80 01/04/25 10:33 Blood Pressure Mean 93 01/04/25 10:33 Blood Pressure Position Sitting 01/04/25 10:33 Pulse Oximetry 99 01/04/25 10:33 Oxygen Delivery Method Room Air 01/04/25 10:33 Vital Signs Temperature 97.5 F L 01/04/25 10:33 Pulse Rate 57 L 01/04/25 10:33 Respiratory Rate 18 01/04/25 10:33 Blood Pressure 119/80 01/04/25 10:33 Pulse Oximetry 99 01/04/25 10:33 Oxygen Delivery Method Room Air 01/04/25 10:33 Temperature 97.5 F L 01/04/25 10:33 Pulse Rate 57 L 01/04/25 10:33 Respiratory Rate 18 01/04/25 10:33 Blood Pressure 119/80 01/04/25 10:33 Pulse Oximetry 99 01/04/25 10:33 Oxygen Delivery Method Room Air 01/04/25 10:33 Medications Administered Medications: Discontinued Medications Generic Name Dose Route Start Last Admin Trade Name Freq PRN Reason Stop Dose Admin Sodium Chloride 500 mls @ 500 mls/hr 01/04/25 11:04 01/04/25 11:26 0.9 % Sodium Chloride 500 Ml IV 01/04/25 12:03 500 mls/hr .Q1H ONE Administration Ketorolac Tromethamine 15 mg 01/04/25 11:04 01/04/25 11:27 Ketorolac 15 Mg/Ml Inj IVP 01/04/25 11:05 15 mg ONCE ONE Administration Ondansetron HCl 4 mg 01/04/25 11:04 01/04/25 11:27 Ondansetron 2 Mg/Ml Inj IVP 01/04/25 11:05 4 mg ONCE ONE Administration Medical Decision Making Lab Data Lab results reviewed: Yes I reviewed the patient's lab results Labs: Lab Results 01/04/25 01/04/25 Range/Units 11:06 11:20 WBC 10.86 (4.50-11.00) K/uL RBC 4.97 (4.00-5.20) m/uL Hgb 11.4 L (12.0-16.0) gm/dL Hct 37.8 (33.0-51.0) % MCV 76 L (80-100) fL MCH 23 L (26-34) pg MCHC 30 L (32-36) gm/dL RDW Coeff of Yuki 16.1 H (11.5-15.5) % Plt Count 327 (140-440) K/uL Neut % (Auto) 85.1 H (42.0-72.0) % Lymph % (Auto) 10.9 L (20-44) % [place] % (Auto) 2.9 (0.0-11.0) % Eos % (Auto) 0.6 (0.0-7.0) % Baso % (Auto) 0.3 (0.0-3.0) % Neut # (Auto) 9.20 H (1.7-7.0) K/uL Lymph # (Auto) 1.20 (0.90-2.90) K/uL [place] # (Auto) 0.30 (0.00-0.90) K/UL Eos # (Auto) 0.06 (0.00-0.50) K/uL Baso # (Auto) 0.03 (0.00-0.30) K/uL Abs Immat Gran (auto) 0.02 (0.00-0.30) K/uL Imm/Tot Granulo (auto) 0.2 % Sodium 138 (135-149) mmol/L Potassium 4.3 (3.6-5.1) mmol/L Chloride 104 (96-114) mmol/L Carbon Dioxide 24 (20-32) mmol/L Anion Gap 10 (7-15) mEq/L BUN 13 (5-24) mg/dL Creatinine 0.6 (0.5-1.5) mg/dL Estimated Creat Clear 134.53 Estimated GFR 121 ml/min Glucose 121 H (60-115) mg/dL Calcium 8.9 (8.4-10.6) mg/dL C-Reactive Protein 0.9 (0.5-1.0) mg/dL Urine Color Yellow (Yellow) Urine Appearance Clear (Clear) Urine pH 6.5 (5.0-8.5) Ur Specific [place] 1.025 (1.000-1.030) Urine Protein Negative (Negative) Urine Glucose (UA) Negative (Negative) Urine Ketones Negative (Negative) Urine Blood Negative (Negative) Urine Nitrite Negative (Negative) Urine Bilirubin Negative (Negative) Urine Urobilinogen 0.2 (0.2-1.0) Ur Leukocyte Esterase Negative (Negative) Urine RBC 0-2 (0-2) Urine WBC 0-2 (0-5) Ur Squamous Epith Cells Few (None-Few) Urine Bacteria Few A (None) Urine HCG, Qual Negative (Negative) Discharge Plan Discharge Clinical Impression: Acute vomiting Patient Disposition: Home, Self-Care Condition: Improved Instructions: Acute Nausea and Vomiting (DC) Additional Instructions: You can use Zofran if needed for further nausea or vomiting. I would recommend sticking with clear liquids today, advance her diet as you feel able. If you have worsening symptoms, more significant abdominal pain, fevers, bloody stools, or are not able to control vomiting with medication, return to the ER at any time. Otherwise follow up with primary care as needed for ongoing concerns. Prescriptions: No Action multivitamin [Daily Multi-Vitamin] Tablet 1 tab PO QAM sertraline 25 mg tablet 50 mg PO QDAY Patient Comments: unknown dose hydroxyzine HCl 10 mg tablet 10 mg PO QHS Patient Comments: Unknown dose norethindrone acetate 5 mg tablet 5 mg PO QDAY Qty: 60 1RF Follow Up/Referrals: Garrett Jose DO [Primary Care Provider] - Stand Alone Forms: [employer] Info Instructions
--- OUTSIDE RECORDS SUMMARY | 2025-01-04 11:10 | XMS_ITS | Clinical Summary ---
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 PCP - General 04/29/10
[2025-01-04] MEDS: 0.9 % SODIUM CHLORIDE 500 ML 500 ML IV (11:26)
[2025-01-04] MEDS: KETOROLAC 15 MG/ML inj IVP (11:27)
[2025-01-04] MEDS: ONDANSETRON 2 MG/ML inj 4 MG IVP (11:27)
[2025-01-04 11:28] LABS: Appearance Urine Clear (Clear); Bilirubin Urine Negative (Negative); Blood Urine Negative (Negative); Color Urine Yellow (Yellow); Glucose Urine Negative (Negative); Ketones Urine Negative (Negative); Leukocyte Esterase Urine Negative (Negative); Nitrite Urine Negative (Negative); Protein Urine Negative (Negative); Specific Gravity Urine 1.025 (1.000-1.030); Urobilinogen Urine 0.2 (0.2-1.0); pH Urine 6.5 (5.0-8.5)
[2025-01-04 11:30] LABS: Basophils Absolute Auto 0.03 K/uL (0.00-0.30); Basophils Percent Auto 0.3 % (0.0-3.0); Eosinophils Absolute Auto 0.06 K/uL (0.00-0.50); Eosinophils Percent Auto 0.6 % (0.0-7.0); Hematocrit 37.8 % (33.0-51.0); Hemoglobin* 11.4 gm/dL (12.0-16.0); Immature Granulocytes Abs Auto 0.02 K/uL (0.00-0.30); Immature Granulocytes Pct Auto 0.2 %; Lymphocytes Percent Auto 10.9 % (20-44); Mean Corpuscular HGB Conc 30 gm/dL (32-36); Mean Corpuscular Hemoglobin 23 pg (26-34); Mean Corpuscular Volume 76 fL (80-100); Monocytes Percent Auto 2.9 % (0.0-11.0); Neutrophils Percent Auto 85.1 % (42.0-72.0); Platelet Count* 327 K/uL (140-440); RDW Coefficient of Variation % 16.1 % (11.5-15.5); Red Blood Count 4.97 m/uL (4.00-5.20); White Blood Count* 10.86 K/uL (4.50-11.00)
[2025-01-04 11:36] LABS: Bacteria Urine Few; RBC Urine 0-2 (0-2); Squamous Epithelial Cell Urine Few (None-Few); Ur HCG Qualitative* Negative (Negative); WBC Urine 0-2 (0-5)
[2025-01-04 11:43] LABS: Slide Review Reflex No
[2025-01-04 11:44] LABS: Chloride* 104 mmol/L (96-114); Potassium* 4.3 mmol/L (3.6-5.1); Sodium* 138 mmol/L (135-149)
[2025-01-04 11:47] LABS: Anion Gap 10 mEq/L (7-15); Blood Urea Nitrogen* 13 mg/dL (5-24); Carbon Dioxide* 24 mmol/L (20-32); Creatinine* 0.6 mg/dL (0.5-1.5); Est. Creatinine Clearance* 134.53; Estimated Glomerular Filt Rate 121 ml/min; Glucose* 121 mg/dL (60-115)
[2025-01-04 11:48] LABS: Calcium* 8.9 mg/dL (8.4-10.6)
[2025-01-04 11:50] LABS: C Reactive Protein* 0.9 mg/dL (0.5-1.0)
== END 2025-01-04 12:28 | disposition home or self-care (01) ==
PROVIDERS: Emergency Provider Emergency Medicine; PCP Obstetrics & Gynecology
DX: R11.10 Vomiting, unspecified (principal)
CPT/HCPCS: 36415; 80048; 81001; 81025; 85025; 86140; 87086; 96374; 96375; 99284; J1885; J2405; J7030

== ENCOUNTER 2025-02-17 08:37 | Day surgery (SDC) | payer MEDICAID, SELFPAY ==
[2025-02-17] VITALS (27 sets, daily range): BP systolic 113–154; BP diastolic 65–111; PULSE 58–103; RESP 8–24; TEMP 35.6–36.4; O2SAT 94–100; BMI 37.2
[2025-02-17] MEDS: SODIUM CHLORIDE 0.9 % (FLUSH) 10 ML SYRINGE IVF (09:38)
[2025-02-17] MEDS: LACTATED RINGERS 1000 ML 1,000 ML 100 ML IV ×2 (09:38→16:52)
[2025-02-17] MEDS: SCOPOLAMINE 1 MG/3 DAY PATCH 1 PATCH TRANSDERMA (09:38)
[2025-02-17 09:46] LABS: Hemoglobin* 12.5 gm/dL (12.0-16.0)
[2025-02-17 09:46] LABS: Ur HCG Qualitative* Negative (Negative)
--- NOTE | 2025-02-17 09:50 | PM.PROC ---
Procedure Note Time Seen by Provider: 12:07 Date Seen: 02/17/25 Date of procedure: 02/17/25 Will [facility] bill your pro fee for this procedure?: Yes Procedure: Preoperative diagnosis: 34-year-old 2 para 2 with menorrhagia and dysmenorrhea. Failed endometrial ablation. Postoperative diagnosis: Same Procedure: Total laparoscopic hysterectomy, diagnostic cystoscopy. Anesthesia: General endotracheal, local Surgeon: Almita Villavicencio MD Assist: Blanche Mayo MD Estimated blood loss: 100 mL. IV Fluid: 900 mL Urine output: 75 mL, clear urine at the end of the procedure Drains: Ferrer to gravity Specimen: Uterus to pathology. Findings: On exam under anesthesia: The uterus was anteverted, approximately 8 week size, mobile without nodularity or masses palpable. Adnexa without mass or fullness palpable. On laparoscopy: Fallopian tubes are surgically absent. There is an ovulatory cyst on the left ovary 2-3 cm in diameter. Both ovaries are otherwise normal. There is 1, 3 mm in diameter, hyperpigmented implant consistent with endometriosis in the right ovarian fossa. No other evidence of endometriosis. There was a 3 cm intramural fibroid in the right cornua otherwise the uterus appeared normal. Appendix and liver edge appeared normal. Procedure: Sushila was taken to the operating room where general anesthetic was found to be adequate. She was placed in the dorsal lithotomy position and an exam under anesthesia was performed with findings stated above. She was then prepped and draped in a normal sterile manner. A Ferrer catheter was placed. A bivalve speculum was placed in the vaginal canal. A long Allis clamp was placed on the anterior lip of the cervix, in the uterus sounded to 9 cm. A large VCare uterine manipulator was then placed. The Allis clamp and speculum were removed from the cervix. Attention was then turned to performing the laparoscopic portion of the procedure. All incisions were infiltrated with 0.5% Marcaine prior to incising the skin. A vertical, infraumbilical 1 cm incision was made. An 11 mm trocar was then placed under direct visualization. The abdomen was then insufflated with CO2 gas to a pressure of 15 mm of mercury. Two, pelvic ports were then placed approximately 3-4 finger breaths medial to the ischial crests. The trocar in the RLQ = 5mm, LLQ = 5mm. These were placed under direct visualization. Attention was then turned to performing the hysterectomy. Both ureters were visualized in the normal position bilaterally. The left side of the hysterectomy was performed using the Ligasure dissecting forceps. The 1st pedicles were starting with the broad ligament that was cauterized and and bisected. Sequential pedicles were formed to divide the utero-ovarian ligament. Then sequential pedicles were made through the broad ligament. The posterior leaf of the broad ligament was then divided and sequential pedicles carried down to the level of the VCare cup. The anterior leaf of the broad ligament was then divided down to the level of the anterior aspect of the VCare cup and a bladder flap created. The uterine vessels were then skeletonized. The uterine vessels were then cauterized and divided. Then excess tissue was cleared over the top of the VCare cup using the dissecting forceps. The right side of the hysterectomy were then performed in a similar manner. The Ligasure Valleylab pen with the spatula attachment was then used to perform the colpotomy incising around the VCare cup. The uterus was removed and the fundus placed in the vaginal canal to maintain insufflation. The vaginal cuff was then reapproximated using 2-0 V lock suture in a running manner. All the pedicles and vaginal cuff were then closely visualized and hemostasis obtained with bipolar cautery using the Ligasure dissecting forceps or the Valleylab pen with the spatula. The the uterus was removed from the vaginal canal and sent to pathology. The Ferrer catheter was briefly removed. A diagnostic cystoscopy was performed using normal saline as the insufflation medium. The dome of the bladder was noted to be without injury and no evidence of any sutures from the vaginal cuff causing injury. Normal urine flow was noted through both ureteral orifices. Fluorescein IV was used to visualize the urine more easily. The Ferrer catheter was then replaced. Attention was then returned to the abdomen where hemostasis was verified. Ingrid was applied to the vaginal cuff. The CO2 pressure decreased to 8mmHG and hemostasis verified. All trocars were removed under direct visualization. CO2 gas was allowed to escape the infraumbilical port prior to its removal. The fascia in the umbilical incision was reapproximated using 0 Vicryl on a UR 6 needle. All skin incisions were re-approximated using 4-0 Monocryl in a running subcuticular manner, Exofin skin adhesive gel was then applied. The patient tolerated this procedure well. Sponge, lap and instrument counts were correct x2 at the end of the procedure and the patient was taken to the recovery area in stable condition. The patient received 3gm IV Ancef prior to the start of the procedure. She received 30mg IV Toradol at the end of the procedure prior to being taken to the recovery room.
--- NOTE | 2025-02-17 10:07 | W.PM.H&PU ---
History & Physical Update History & Physical Update H&P Reviewed and patient assessed: No changes noted
[2025-02-17] MEDS: CEFAZOLIN 1 GM inj 3 GM IVP (10:34)
--- NOTE | 2025-02-17 10:53 | P.NB_ITS ---
Nerve Block Nerve Block Time Seen by Provider: 10:14 Date Seen: 02/17/25 Type of block requested by surgeon for post-operative analgesia: TAP Side: bilateral Time out performed: Yes Verification of patient name: Yes Verification of date of : Yes Name of person performing procedure: Lisy Irene Continuous monitoring Was continuous monitoring of O2 sat, B/P, instrument room technician, recorded every 15 minutes?: Yes Procedure Checklist: sterile prep, needles and gloves Ultrasound guided. Images saved: Yes Medications given in 5ml increments after negative aspiration: Marcaine %: 0.25 mL: 50 Needle gauge: 20 and Exparel mL: 10 Needle gauge: 20 Patient tolerated procedure well: Yes Block Charges Block Charge (with Pro Fee): TAP Bilateral Use of Ultrasound Machine for Block: Yes- US Guidance/pain block
[2025-02-17] MEDS: BUPIVACAINE 0.5% 30 ML INJECTION (11:00)
--- NOTE | 2025-02-17 11:45 | SUR.OPER ---
uterus= 152 g
[2025-02-17] MEDS: fentaNYL 100 MCG/2 ML inj 50 MCG IVP ×2 (12:24→12:29)
--- NOTE | 2025-02-17 12:30 | P.ANES_ITS ---
Anesthesia Charges Start Date/Time Anesthesia Start Date: 02/17/25 Anesthesia Start Time: 10:08 Stop Date/Time Anesthesia Stop Date: 02/17/25 Anesthesia Stop Time: 12:23 Coding CPT Codes CPT Codes: ANESTH SURG LOWER ABDOMEN - 10851 ([id number]) P2 - PATIENT W/MILD SYST DISEASE, QZ - REDUCTION FURNACE OPERATOR HELPER SVC W/O LIVING SUPERVISOR BY
--- NOTE | 2025-02-17 12:30 | W.ANESCHARGE ---
Anesthesia Charges Start Date/Time Anesthesia Start Date: 02/17/25 Anesthesia Start Time: 10:08 Stop Date/Time Anesthesia Stop Date: 02/17/25 Anesthesia Stop Time: 12:23 Coding CPT Codes CPT Codes: ANESTH SURG LOWER ABDOMEN - 16416 ([id number]) P2 - PATIENT W/MILD SYST DISEASE, QZ - SOLE TIER SVC W/O DEPENDENCY DIRECTOR BY
[2025-02-17] MEDS: KETOROLAC 30 MG/ML inj IVP ×2 (12:48→18:23)
[2025-02-17] MEDS: LACTATED RINGERS 1000 ML 1,000 ML 35 ML IV (13:25)
--- NOTE | 2025-02-17 13:26 | SUR.PHASEI ---
patient met discharge criteria per anesthesia
[2025-02-17] MEDS: ACETAMINOPHEN 500 MG TABLET 1000 MG PO ×2 (13:45→21:03)
[2025-02-17] MEDS: OXYCODONE 5 MG TABLET 10 MG PO ×2 (13:45→22:48)
[2025-02-17] MEDS: ONDANSETRON 2 MG/ML inj 4 MG IVP ×2 (13:53→18:57)
--- NOTE | 2025-02-17 14:37 | PC.NURSE ---
End of shift report: Patient returned to room 260 at 1315. Rated pain 7/10 initially. Stated This is the worst pain i've ever had. It feels like the worst period and I feel like I have to have a bowel movement. Patient had been given Toradol and fentanyl in PACU. Had patient eat some toast and drink some apple juice when she arrived to M/S. Gave Tylenol/Oxy afterwards. Patient began to feel nauseous after this. Zofran and aromatherapy patch was given. Patient ended up vomiting X1 about a half hour after getting Oxy and Tylenol. Patient stated she felt better after she threw up. Patient has also been coughing continuously since coming back from surgery. Patient stated she had been sick back in mid january and has a residual cough. Notified MD of this situation. Abdominal binder made available to patient to help with pain when she coughs. Also has a pillow to hug when she needs to cough. Vital signs within normal limits. X3 lap sites are clean, dry and intact. Lung sounds are clear. Bowel sounds hypo active. Vaginal bleeding controlled. PIV patent and intact. LR @ 100ml/hr.
[2025-02-17] MEDS: SIMETHICONE 80 MG TAB.CHEW 160 MG PO (15:56)
[2025-02-17] MEDS: SERTRALINE 50 MG TABLET 100 MG PO (16:51)
[2025-02-17] MEDS: LORazepam 2 MG/ML inj IVP (18:18)
[2025-02-17] MEDS: HYDROmorphone 0.5 mg/0.5 ml inj IV (19:51)
[2025-02-18] MEDS: KETOROLAC 30 MG/ML inj IVP (00:45)
[2025-02-18] MEDS: ACETAMINOPHEN 500 MG TABLET 1000 MG PO ×2 (03:07→11:48)
[2025-02-18 03:10] VITALS: BP 138/92; PULSE 54; RESP 16; TEMP 36.3; O2SAT 98
--- NOTE | 2025-02-18 06:10 | PC.NURSE ---
End of shift note : Pt A&Ox4 and able to make needs known. Three surgical lap sites to abdomen closed with surgical glue and BELINDA with no s/s of infection or drainage observed. Pt has been continent of bladder. Abdominal pain controlled with rest, repositioning, ice and scheduled and PRN pain medications. Pt noted to have some nausea at start of shift with aromatherapy patch applied. She has otherwise been denying nausea throughout the shift when asked and has had no vomiting noted. Pt transfers/ambulates independently. She is tolerating regular diet. Call light within reach. ?
[2025-02-18 06:49] LABS: Hemoglobin* 10.1 gm/dL (12.0-16.0)
--- NOTE | 2025-02-18 07:14 | PM.GYNDS1 ---
DS: Providers Provider Time Seen by Provider: 07:14 Date Seen: 02/18/25 Primary care physician: Not a Local Provider Attending Physician on discharge: Almita Villavicencio MD UPHOLSTERY ESTIMATOR-Discharge Summary Hospital Course Hospital Course Narrative: Patient is a 34 year old admitted on 02/18/2024 for surgery. She is seen on postoperative day 1 from a total laparoscopic hysterectomy and diagnostic cystoscopy, performed per abnormal uterine bleeding and pelvic pain. Indication for surgery: AUB, pelvic pain. Intraoperative findings were notable for fibroid uterus, surgically absent fallopian tubes. Please see operative note for complete details. She had an uncomplicated surgery. Postoperative course has been uneventful. Vitals have been stable. She has remained afebrile. Today, on postoperative day 1, she reports the pain is well controlled. She has been on a regimen of Tylenol, NSAIDs and oxycodone (10mg x1 yesterday evening). She has been able to ambulate Without difficulty. She is tolerating regular diet without nausea or vomiting. She is passing flatus, no bowel movement yet. Ferrer catheter has been removed, and she is voiding without difficulty. Vaginal bleeding is described as scant spotting. Denies fevers/chills, dizziness/lightheadedness. Time Spent with Patient Time attestation: Total time spent providing and/or coordinating discharge services: Time spent: Less than 30 minutes UPHOLSTERY ESTIMATOR - Exam Physical Exam: Vital signs: Temp Pulse Resp BP Pulse Ox O2 Del Method O2 Flow Rate 97.3 F L 54 L 16 138/92 H 98 Room Air 2 02/18/25 03:10 02/18/25 03:10 02/18/25 03:10 02/18/25 03:10 02/18/25 03:10 02/18/25 03:10 02/17/25 13:05 Narrative: Vital sign reviewed and are within normal limits. A.m. hemoglobin of 10.1. General: Alert and oriented, no acute distress Psych: Appropriate mood affect Abdomen: Soft, nondistended. Under palpation of bilateral lower quadrant consistent with postoperative state. No rebound or guarding. Incisions are approximated well, surgical glue noted. No separation, erythema or drainage. UPHOLSTERY ESTIMATOR - DS: Data Data Completed and Pending Labs on day of discharge: Labs from last 24 hours 02/18/25 02/17/25 02/17/25 06:28 Unknown 09:36 Hgb 10.1 L Urine HCG, Qual Negative Blood Type O Negative Antibody Screen NEGATIVE 02/17/25 09:30 Hgb 12.5 Urine HCG, Qual Blood Type Antibody Screen Procedures Procedures: Procedures Operation Date: 02/17/25 10:20 Actual Procedure Side Surgeon p Total Laparoscopic Hysterectomy, Diagnostic Cystoscopy Almita Villavicencio MD Discharge Plan Discharge Disposition: Home w/ Parent or Adult Discharging Surgeon: Blanche Mayo Follow-Up Appointment: 03/01 at 10:30am, 04/08 at 9:30am Prescriptions: New ibuprofen 600 mg tablet 600 mg PO QID PRNQty: 30 0RF docusate sodium [DOK] 100 mg tablet 100 mg PO BID PRN (Reason: constipation) Qty: 100 0RF Continued multivitamin [Daily Multi-Vitamin] Tablet 1 tab PO QAM sertraline 25 mg tablet 50 mg PO QDAY Patient Comments: unknown dose hydroxyzine HCl 10 mg tablet 10 mg PO QHS Patient Comments: Unknown dose Activity Level: Other Discharge Diet: Regular Patient Instructions: Ibuprofen (By mouth), Oxycodone, Rapid Release (By mouth), Laxative, Stimulant Combination (By mouth), Laparoscopic Hysterectomy (DC) Additional Instructions: ACTIVITY RESTRICTIONS: Nothing vaginally for 6 weeks: no tampons/intercourse No driving while taking narcotic pain medication during the day. 1-2 weeks. Lifting restriction: Maximum of 20 pounds for 4 weeks. High impact or core exercises: 4 weeks. Submerge the incisions in water (bath/pool/darnell): 2 weeks. Off of work/school for a minimum of 4 weeks NO RESTRICTIONS for: Walking Going up/down stairs Showering Being the passenger in a motor vehicle SYMPTOMS TO REPORT TO YOUR DOCTOR: Bleeding that is red, like a moderate period Passing clots larger than the size of a golf ball Pain not relieved by prescribed medication Fever above 100.4 degrees Fahrenheit A foul vaginal odor Decrease in urination or painful, frequent urinating Chest pain Shortness of breath Tenderness or pain with redness and/swelling in the calf(s) of your leg Follow-up Appointments: 1. [facility]3 [facility] for an incision check. 2. A 6 week postop visit to verify that the vaginal cuff is well-healed. For pain: Alternate ibuprofen (Advil) 600mg (3 tablets) with ES Tylenol 1,000mg (2 tablets) every 3 hours. Add oxycodone as needed up to 3 times a day for breakthrough pain. Follow-up: Almita Villavicencio MD [Staff Physician] - 03/04/25 10:30 am (First appointment March 04, 2025 @10:30am. Second appointment is April 08, 2025 @9:30am, [facility] Provider,Not a Local [Primary Care Provider] - Discharge Orders: Discharge Order (Routine); Ordered 02/18/25 Ordered By: Blanche Mayo
[2025-02-18 07:36] VITALS: BP 119/77; PULSE 59; RESP 16; TEMP 36.4; O2SAT 98
[2025-02-18] MEDS: SERTRALINE 50 MG TABLET 100 MG PO (07:45)
[2025-02-18] MEDS: OXYCODONE 5 MG TABLET 10 MG PO ×2 (07:46→11:45)
[2025-02-18 08:49] VITALS: O2SAT 98
--- NOTE | 2025-02-18 11:11 | PC.NURSE ---
Patient is planning to discharge home. Brother is coming at noon. Patient is tolerating a regular diet, denies nausea, voiding without difficulty, passing flatus and pain is manageable with PO medications. PIV taken out and catheter intact. VSS. Has follow up appointments made. Has support from father, aunt and friend when she gets home. All questions answered.
== END 2025-02-18 12:00 | disposition home or self-care (01) ==
LOC: OR 08:39 → MEDSURG 08:39
PROVIDERS: Visit Provider Obstetrics & Gynecology
PROC: 0UT94ZZ Resection of Uterus, Percutaneous Endoscopic Approach (ICD-10-PCS; CPT 58570; principal; 2025-02-17 10:00)
DX: N92.0 Excessive and frequent menstruation with regular cycle (principal); N94.6 Dysmenorrhea, unspecified; D25.1 Intramural leiomyoma of uterus; N83.292 Other ovarian cyst, left side; G89.18 Other acute postprocedural pain; N99.85 Post endometrial ablation syndrome; E66.9 Obesity, unspecified; Z68.37 Body mass index [BMI] 37.0-37.9, adult
CPT/HCPCS: 58570; 00840; 36415; 64488; 76942; 81025; 85018; 86850; 86900; 86901; 88307; A4314; A9270; J0330; J0665; J0666; J0690; J1100; J1171; J1630; J1885; J2060; J2405; J2704; J3010; J3490; J7120

== ENCOUNTER 2025-07-29 11:56 | Outpatient (CLI) | payer MEDICAID, SELFPAY | END 2025-07-29 11:57 | disposition home or self-care (01) | PROVIDERS: Visit Provider Physician Assistant Medical | DX: R61 Generalized hyperhidrosis (principal); D64.9 Anemia, unspecified; R53.83 Other fatigue | CPT/HCPCS: 80053; 82607; 82728; 84443; 86140; 86703; 86803 ==